=== PATIENT | female | born 1970 | race Two or more races ===

== ENCOUNTER 2024-03-05 14:14 | Outpatient (CLI) | payer OTHER ==
[~2024-03-05 14:14] MED LIST: DOLOGEN CAPLET1 EACH PO; SYNTHROID125 MCG; TAPAZOLE10 MG; ULTRACET PO
== END 2024-03-05 14:21 | disposition home or self-care (01) ==
LOC: RAD 14:14
PROVIDERS: ATTEND Orthopaedic Surgery
DX: M25.572 Pain in left ankle and joints of left foot (principal)

== ENCOUNTER 2024-03-17 09:54 | Outpatient (CLI) | payer OTHER | END 2024-03-17 09:55 | disposition home or self-care (01) | LOC: NUCLEAR 09:54 | PROVIDERS: ATTEND Orthopaedic Surgery | DX: M81.0 Age-related osteoporosis without current pathological fracture (principal) ==